=== PATIENT | female | born 1980 | race Caucasian/White ===

== ENCOUNTER 2020-08-07 14:16 | Emergency (ER) | payer BC | END 2020-08-07 14:57 | disposition home or self-care (01) | LOC: JVIRT 14:16 | DX: U07.1 COVID-19 (principal) | CPT/HCPCS: C9803; G2012-GT; U0003 ==

== ENCOUNTER 2021-05-27 09:50 | Emergency (ER) | payer BC ==
[2021-05-27 10:08] VITALS: BP 108/63; PULSE 84; TEMP 97.8; BMI 20.2
[2021-05-27] MEDS ORDERED: ACETAMINOPHEN 325 MG TABLET (FP) PO ONE (11:46)
== END 2021-05-27 12:50 | disposition home or self-care (01) ==
LOC: FER 09:50 → FM/S 11:33 → FER 11:33
DX: J40 Bronchitis, not specified as acute or chronic (principal)
CPT/HCPCS: 71046-TC-FY; 87804; 87807; 99284-25